=== PATIENT | male | born 1950 | race Hispanic/Latino ===

== ENCOUNTER → 2017-07-24 | Outpatient (CLI) | payer OTHER | END | disposition home or self-care (01) | LOC: SHCH 11:51 | PROVIDERS: ATTEND Internal Medicine Cardiovascular Disease | DX: I10 Essential (primary) hypertension (principal); J44.9 Chronic obstructive pulmonary disease, unspecified | CPT/HCPCS: 93306 ==

== ENCOUNTER → 2017-07-31 | Outpatient (CLI) | payer OTHER | END | disposition home or self-care (01) | LOC: SHCH 09:53 | PROVIDERS: ATTEND Internal Medicine Cardiovascular Disease | DX: I73.89 Other specified peripheral vascular diseases (principal); I70.203 Unspecified atherosclerosis of native arteries of extremities, bilateral legs | CPT/HCPCS: 93925 ==

== ENCOUNTER → 2017-08-04 | Outpatient (CLI) | payer OTHER ==
[~2017-08-04] MED LIST: REGADENOSON 0.4 MG/5 ML PF SYG IVP SCH
== END | disposition home or self-care (01) ==
LOC: SHCH 10:00
PROVIDERS: ATTEND Internal Medicine Cardiovascular Disease
DX: I10 Essential (primary) hypertension (principal); J44.9 Chronic obstructive pulmonary disease, unspecified
CPT/HCPCS: 78452; 93017; 96374; A9500 ×2; J2785

== ENCOUNTER → 2017-11-06 | Outpatient (CLI) | payer OTHER | END | disposition home or self-care (01) | LOC: OIH 10:22 | PROVIDERS: ATTEND Family Medicine | DX: I10 Essential (primary) hypertension (principal) | CPT/HCPCS: 71046 ==

== ENCOUNTER → 2019-06-07 | Outpatient (CLI) | payer OTHER | END | disposition home or self-care (01) | LOC: SHCH 09:42 | PROVIDERS: ATTEND Internal Medicine Cardiovascular Disease | DX: I65.23 Occlusion and stenosis of bilateral carotid arteries (principal) | CPT/HCPCS: 93880 ==

== ENCOUNTER → 2019-06-12 | Outpatient (CLI) | payer OTHER | END | disposition home or self-care (01) | LOC: SHCH 12:44 | PROVIDERS: ATTEND Internal Medicine Cardiovascular Disease | DX: I51.7 Cardiomegaly (principal); R01.1 Cardiac murmur, unspecified | CPT/HCPCS: 93306 ==

== ENCOUNTER → 2024-10-12 | Outpatient (CLI) | payer OTHER ==
[2024-10-12] MEDS: REGADENOSON 0.4 MG/5 ML PF SYG IVP ONE (10:13)
--- NOTE | 2024-10-14 01:03 | HMCSR ---
APPROVED REPORT Height: 5 ft 9in Weight: 177 lbs TEST INDICATIONS I44.1 ATRIAL VENTRICULAR BLOCK The imaging protocol used to acquire images was Rest Tc-99m/stress Tc-99m 1 day Consent: The procedure was explained and understood by the patient. Informerd consent was witnessed Anne-Marie OLMOS RN First, low dose rest was performed then high dose stress. RESTING DATA: The resting ekg shows: NSR Rest SPECT myocardial perfusion imaging was performed in supine position 55 minutes following the int ravenous injection of 10.8 mCi of Tc-99 Sestamibi. Time of rest injection: 08:53: Date: 10/12/2024 Time of rest imagin:48: Date: 10/12/2024 PHARMACOLOGIC STRESS: Pharmacologic stress test was performed by injecting regadenoson 0.4 mg IV push followed by the intra venous injection of 33.0 mCi of Tc-99 Sestamibi. Time of stress injection: 10:10: Date: 10/12/2024 Time of stress imagin:31: Date: 10/12/2024 Gated Stress SPECT was performed 81 minutes after stress injection. The images were gated to evaluate regional wall motion and calculate left ventricular ejection fracti on. STRESS DETAILS Reason for Termination: Infusion complete Stress Symptoms: Dyspnea Max HR Achieved: 91 bpm % of APMHR Achieved: 63 Max Blood Pressure: 157/66 mmHg Stress ECG: NSR Arrhythmia: No. ST Change: No. Study quality was fair. Artifact: motion artifact, diaphragmatic artifact LEFT VENTRICLE Size: The left ventricular size is normal. Systolic Function:The left ventricular systolic function is normal. Wall Motion: No regional wall motion abnormalities noted. The left ventricular ejection fraction was calculated to be 72%.TID = . LV PERFUSION The rest and stress images show normal perfusion. No reversible ischemia or areas of infarct were se en. No obvious TID. RV Size/Shape The right ventricle was not well-visualized. IMPRESSION Stress ECG Summary: Nondiagnostic Conclusion Normal Lexiscan stress test. The rest and stress images show normal perfusion. No reversible ischemia or areas of infarct were se en. No obvious TID. The left ventricular size is normal. No regional wall motion abnormalities noted. The left ventricula r systolic function is normal. Poststress LVEF was calculated to be 72%. Stress ECG Summary: Nondiagnostic Study indicates a low risk for cardiovascular events.
== END | disposition home or self-care (01) ==
LOC: SHCH 08:37
PROVIDERS: ATTEND Internal Medicine Cardiovascular Disease
DX: I44.1 Atrioventricular block, second degree (principal); R06.00 Dyspnea, unspecified; I10 Essential (primary) hypertension; J44.9 Chronic obstructive pulmonary disease, unspecified; I73.9 Peripheral vascular disease, unspecified; I49.1 Atrial premature depolarization; I47.29 Other ventricular tachycardia; G47.33 Obstructive sleep apnea (adult) (pediatric)
CPT/HCPCS: 78452; 93017; J2785; A9500 ×2